=== PATIENT | female | born 1960 | race Caucasian/White ===

== ENCOUNTER 2020-01-29 07:24 | Day surgery (SDC) | payer BC ==
[~2020-01-29 07:24] MED LIST: Lactated Ringers 1,000 ML IV SCH
[2020-01-29] MEDS ORDERED: fentaNYL 100 MCG/2 ML SDV ONE (08:22)
[2020-01-29] MEDS ORDERED: Propofol 200 MG/20 ML SDV ONE ×2 (08:22→09:24)
[2020-01-29 09:56] VITALS: BP 132/81; PULSE 70
--- NOTE | 2020-01-29 13:38 | OR ---
DATE OF SURGERY: 01/29/2020. REFERRING PROVIDER: Jo Mcgee MD PRE-OPERATIVE DIAGNOSES: 1. History of colon polyps. Last colonoscopy in 2014 revealed one 5 mm adenoma at 100 cm, removed with hot snare. 2. Positive family history of colon cancer in father who was diagnosed in his late 60s. POST-OPERATIVE DIAGNOSES: 1. Normal colon. 2. Some minimal hemorrhoids, not acutely inflamed. PROCEDURE: Colonoscopy. SURGEON: Gonzalo Florence M.D. ANESTHESIA: Monitored anesthesia care. BOWEL PREP: Good. Freda is a 59-year-old female who was brought to the endoscopy suite after discussing risks and benefits of the procedure. Informed consent was obtained for conscious sedation and colonoscopy with or without biopsy and/or polypectomy. We also discussed possibility of missed lesions. Pre-procedure exam was unremarkable. IV, oxygen, and monitors were placed. The patient was placed in the left lateral decubitus position. Sedation was administered and a digital rectal exam was performed and remarkable for some minimal hemorrhoids, not acutely inflamed. Colonoscope was passed into the rectum and slowly advanced all the way to the cecum. Cecum was viewed and photographed. The colonoscope was slowly withdrawn and the mucosa was closed observed in a direct circumferential manner. The ascending colon was unremarkable. The transverse colon was unremarkable. The descending colon was unremarkable. The sigmoid colon was unremarkable. Retroflexion was performed and rectal mucosa was remarkable for some minimal hemorrhoids, not acutely inflamed. Scope was removed. The patient tolerated the procedure well. The patient was monitored until that baseline status. Discharge instructions were reviewed and the patient was discharged in good condition. COMPLICATIONS: None. TOTAL TIME: 18 minutes. ESTIMATED BLOOD LOSS: None. RECOMMENDATIONS/FOLLOW-UP: Given the patient's history of colon polyps as well as positive family history of colon cancer, I would recommend repeating again in 5 years. I would like to kindly thank Dr. Mcgee for this referral. DMB: 01/29/2020 11:17:53 MODL: 01/29/2020 12:30:44 /[id number]
== END 2020-01-29 10:20 | disposition home or self-care (01) ==
LOC: VM.SDS 07:24
PROVIDERS: ATTEND Family Medicine
DX: Z12.11 Encounter for screening for malignant neoplasm of colon (principal); K64.9 Unspecified hemorrhoids; E11.9 Type 2 diabetes mellitus without complications; I10 Essential (primary) hypertension; F41.1 Generalized anxiety disorder; E78.00 Pure hypercholesterolemia, unspecified; G89.29 Other chronic pain; E66.9 Obesity, unspecified; Z01.812 Encounter for preprocedural laboratory examination; Z20.828 Contact with and (suspected) exposure to other viral communicable diseases; Z86.010 Personal history of colon polyps; Z80.0 Family history of malignant neoplasm of digestive organs; Z79.899 Other long term (current) drug therapy; Z79.84 Long term (current) use of oral hypoglycemic drugs; Z98.890 Other specified postprocedural states; Z68.33 Body mass index [BMI] 33.0-33.9, adult
CPT/HCPCS: 00811; 82962; J2704; J3010; J7120; U0002